=== PATIENT | female | born 1990 | race Two or more races ===

== ENCOUNTER 2018-09-25 21:45 | Emergency (ER) | payer OTHER ==
[2018-09-25 21:51] VITALS: BP 140/78; PULSE 110; RESP 18
[2018-09-25 21:52] VITALS: TEMP 98.3; O2SAT 98
--- NOTE | 2018-09-25 22:28 | ED PDOC ---
HPI: Psych/Substance Abuse Time Seen by Provider: 09/25/18 21:53 Chief Complaint (Nursing): Alcohol Ingestion Chief Complaint (Provider): Alcohol Ingestion History Per: Patient, EMS History/Exam Limitations: no limitations Onset/Duration Of Symptoms: Mins Current Symptoms Are (Timing): Still Present Modifying Factor(s): Alcohol Additional Complaint(s): 27 y/o female with no significant PMHx brought in by EMS for alcohol intoxication. Patient offers no complaints at this time. According to EMS, patient was found outside talking to a pole. Patient states she does not recall this. Patient reports she was just picking up a cab to go home in [place]. Patient admits to drinking alcohol today. Otherwise, patient denies drug use, homicidal ideation and suicidal ideation. PMD: none provided Past Medical History Reviewed: Historical Data, Nursing Documentation, Vital Signs Vital Signs: Last Vital Signs Temp 98.3 F 09/25/18 21:51 Pulse 110 H 09/25/18 21:51 Resp 18 09/25/18 21:51 BP 140/78 09/25/18 21:51 Pulse Ox 98 09/25/18 21:51 - Medical History PMH: No Chronic Diseases - Surgical History Surgical History: No Surg Hx - Family History Family History: States: Unknown Family Hx - Social History Alcohol: Social - Allergies Allergies/Adverse Reactions: Allergies Allergy/AdvReac Type Severity Reaction Status Date / Time No Known Allergies Allergy Verified 09/25/18 21:49 Review of Systems ROS Statement: Except As Marked, All Systems Reviewed And Found Negative Psych: Positive for: Other (alcohol intoxication) Physical Exam - Reviewed Nursing Documentation Reviewed: Yes Vital Signs Reviewed: Yes - Physical Exam Appears: Positive for: No Acute Distress Head Exam: Positive for: ATRAUMATIC, NORMOCEPHALIC Skin: Positive for: Warm, Dry Eye Exam: Positive for: Conjunctival injection Cardiovascular/Chest: Positive for: Regular Rate, Rhythm. Negative for: Murmur Respiratory: Negative for: Respiratory Distress Extremity: Positive for: Normal ROM. Negative for: Deformity Neurologic/Psych: Positive for: Alert, Oriented (x3), Gait (steady). Negative for: Motor/Sensory Deficits, Other (slurred speech) - ECG O2 Sat by Pulse Oximetry: 98 (RA) Pulse Ox Interpretation: Normal Medical Decision Making Medical Decision Making: Time: 2153 Impression: Alcohol Intoxication. Plan: -- Glucose, Blood, POC Time: 0 -- Patient left before discharge and reassessment. Scribe Attestation: Documented by Keila Meraz, acting as a scribe for Luba He MD. Provider Scribe Attestation: All medical record entries made by the Scribe were at my direction and personally dictated by me. I have reviewed the chart and agree that the record accurately reflects my personal performance of the history, physical exam, medical decision making, and the department course for this patient. I have also personally directed, reviewed, and agree with the discharge instructions and disposition. Disposition - Clinical Impression Clinical Impression: Alcohol abuse with uncomplicated intoxication - Disposition Disposition: Left W/O Treatment Disposition Time: 22:20 Condition: UNKNOWN
== END 2018-09-25 22:00 | disposition left against medical advice (07) ==
LOC: H.ER 21:45
DX: F10.120 Alcohol abuse with intoxication, uncomplicated (principal)